=== PATIENT | male | born 1995 | race Caucasian/White ===

== ENCOUNTER 2016-06-28 01:23 | Emergency (ER) | payer OTHER ==
[~2016-06-28 01:23] MED LIST: NO MEDICATIONS
== END 2016-06-28 01:58 | disposition home or self-care (01) ==
LOC: SED 01:23
DX: L03.313 Cellulitis of chest wall (principal); L03.114 Cellulitis of left upper limb; F17.200 Nicotine dependence, unspecified, uncomplicated
CPT/HCPCS: 99282